=== PATIENT | female | born 1970 | race Hispanic/Latino ===

== ENCOUNTER → 2019-06-02 | Outpatient (CLI) | payer BC | END | disposition home or self-care (01) | LOC: RAH 13:44 | PROVIDERS: ATTEND Obstetrics & Gynecology | DX: Z12.31 Encounter for screening mammogram for malignant neoplasm of breast (principal) | CPT/HCPCS: 77067 ==

== ENCOUNTER 2024-04-15 01:45 | Emergency (ER) | payer BC ==
[~2024-04-15] VITALS: Ht 157.5 cm; Wt 88.5 kg
[2024-04-15 01:47] VITALS: BP 111/67; PULSE 78; RESP 20; TEMP 97.8
[2024-04-15] MEDS ORDERED: BENZ-39 PO (02:13)
[2024-04-15] MEDS ORDERED: AUD IH (02:13)
--- NOTE | 2024-04-15 02:14 | ERN ---
ED Note History of Present Illness Stated Complaint: COUGH, CONGESTION, SORE THROAT, SWELLING TO FACE Chief Complaint: Cough Time Seen by MD: 02:01 Past Medical History Dictation 53-year-old female with no significant past medical history presents with several days of upper respiratory tract symptoms. Patient's was seen at her primary care physician four days ago and returns today because her symptoms have not improved. Patient denies fevers, productive cough, syncope, presyncope, chest pain, nausea, vomiting diaphoresis Past Medical History: No Pertinent History Surgical History: Cholecystectomy, Review of System Dictation See HPI Initial Vital Sign VS Vital Signs Date Time Temp Pulse Resp B/P (MAP) Pulse Ox O2 Delivery O2 Flow Rate FiO2 04/15/24 01:47 97.9 78 20 111/67 97 Room Air Physical Exam Dictation Uncomfortable appearing, normal BMI, lungs clear to auscultation, regular heart rate and rhythm, no murmurs rubs or gallops, copious nasal discharge ED Course ED Course Vital Signs Date Time Temp Pulse Resp B/P (MAP) Pulse Ox O2 Delivery O2 Flow Rate FiO2 04/15/24 01:47 97.9 78 20 111/67 97 Room Air Medical Decision Making MDM dDX: Flu versus COVID versus URI Patient's rapid flu and rapid COVID negative at outside facility. Patient's symptoms have not worsened, but have not improved. Discussed ED workup patient. Constipation and expected trajectory of acute viral syndrome. Return precautions given. Invited and answered all questions prior to discharge. We will prescribe Tessalon Perles and albuterol inhaler. DX & DISP Disposition: Discharge Departure Impression: Primary Impression: Acute URI Condition: Stable Scripts Albuterol Sulfate (Albuterol Sulfate) 2.5 Mg/0.5 Ml Vial.neb 2.5 MG IH Q6H for wheezing/sob, #20 INH 0 Refills Prov: GARY LOZADA DO 04/15/24 Benzonatate (Tessalon Perles) 100 Mg Cap 200 MG PO TID for cough for 7 Days, #30 CAP 0 Refills Prov: GARY LOZADA DO 04/15/24 Additional Instructions: Please follow up with primary care physician next available appointment. Please return to emergency department immediately if you develop productive cough, sudden loss of consciousness, feel weak or lethargic, have continuous nausea and vomiting, can not eat or drink. Referrals: SELF,REFERRAL (PCP) Time of Disposition: 00:00 GARY LOZADA DO Apr 15, 2024 02:14
== END 2024-04-15 02:20 | disposition home or self-care (01) ==
LOC: EDH 01:45
DX: J06.9 Acute upper respiratory infection, unspecified (principal); Z90.49 Acquired absence of other specified parts of digestive tract; Z98.890 Other specified postprocedural states
CPT/HCPCS: 99283